=== PATIENT | female | born 1960 | race Hispanic/Latino ===

== ENCOUNTER 2021-12-14 21:27 | Emergency (ER) | payer OTHER ==
[~2021-12-14] VITALS: Ht 170.2 cm; Wt 69.9 kg
[2021-12-14] MEDS ORDERED: TOBR5DRO48 OP (23:43)
[2021-12-14 23:53] VITALS: BP 138/82
[2021-12-15] MEDS ORDERED: TOBRAMYCIN/DEXAMETHASONE OPTH SUSP 2.5 ML BOT OU SCH
== END 2021-12-15 00:01 | disposition home or self-care (01) ==
LOC: EDH 21:27
DX: H10.33 Unspecified acute conjunctivitis, bilateral (principal); Z79.52 Long term (current) use of systemic steroids

== ENCOUNTER 2024-05-04 12:44 | Emergency (ER) | payer BC ==
[~2024-05-04] VITALS: Ht 170.2 cm; Wt 59.0 kg
[~2024-05-04 12:44] MED LIST: TOBR5DRO48 OP
[2024-05-04 13:11] LABS: BASOPHILS # (AUTO) 0.02 K/uL (0.00-0.20); BASOPHILS % (AUTO) 0.2 % (0.0-5.0); HEMATOCRIT 47.9 % (36-48); IMMATURE GRANULOCYTE ABSOLUTE 0.03 K/uL (0-1); LYMPHOCYTES # (AUTO) 0.4 K/uL (1.0-4.8); MEAN CORPUSCULAR HEMOGLOBIN 28.7 pg (27.0-33.0); MEAN CORPUSCULAR HGB CONC 32.4 g/dL (32.0-36.0); MEAN CORPUSCULAR VOLUME 88.7 fL (79-99); MONOCYTES # (AUTO) 0.5 K/uL (0.1-1.0); NEUTROPHILS # (AUTO) 8.6 K/uL (1.8-7.7); NEUTROPHILS % (AUTO) 90.5 % (40.0-77.0); PLATELET COUNT (AUTO) 342 K/uL (130-400); RED CELL DISTRIBUTION WIDTH 12.9 % (11.0-15.5); WHITE BLOOD COUNT (AUTO) 9.5 K/uL (4.8-10.8)
[2024-05-04] MEDS: acetaMINOPHEN 500 MG TABLET PO ONE (13:15)
[2024-05-04] MEDS: 0.9%NACL 1000ML 1,000 ML IV ONE (13:15)
--- NOTE | 2024-05-04 13:30 | HMCIMG ---
Exam Type: CHEST 1VW Clinical Information: Fever / Sepsis Comparison: None Findings: The lungs are clear of infiltrates. The heart is enlarged. Bony and soft tissue structures of the chest wall are unremarkable. IMPRESSION: Cardiomegaly. Clear lungs.
[2024-05-04 13:43] LABS: CREATININE 0.8 mg/dL (0.5-1.0)
--- NOTE | 2024-05-04 13:44 | ERN ---
General Chief Complaint: Earache Stated Complaint: EARACHE Time Seen by MD: 12:55 History of Present Illness Initial Comments 63-year-old female, denies medical conditions, presents for right ear pain and fever. Patient reports that her ear has been bothering her for couple of days. This morning she felt very weak. She reports she has pain to the right side of her face. No nausea or vomiting sore throat cough congestion or diarrhea or dysuria. Allergies: Coded Allergies: No Known Allergies (Unverified Allergy, Unknown, 12/14/21) Home Meds Active Scripts Tobramycin/Dexamethasone (Tobradex Eye Drops) 5 Ml Drops.susp, 5 ML OP AD, #5 DROP Prov:HANNY GARCIA Jr. 12/14/21 Past Medical History Past Medical History: No Pertinent History Past Surgical History: Other Surgical History Other: RT 5TH TOE AMPUTATION, DENTAL SX Family History Family History: Negative Social History Social History: Negative, Lives with family Female( History) History: Not Applicable ROS Dictation CONSTITUTIONAL: Body aches and weakness HEAD/FACE: No signs of trauma. EENT: Right ear pain RESPIRATORY: No cough, no orthopnea, no SOB, no stridor, no wheezing. CARDIOVASCULAR: No chest pain, no edema, no palpitations, no syncope. GASTROINTESTINAL/ABDOMINAL: No abdominal pain, no constipation, no diarrhea, no nausea, no vomiting. GENITOURINARY: No abnormal discharge, no dysuria, no frequent urination, no hematuria. No complaints of pain in the genitals. MUSCULOSKELETAL: No back pain, no gout, no joint pain, no joint swelling, no muscle pain, no muscle stiffness, no neck pain. INTEGUMENTARY: No change in color, no change in hair/nails, no dryness, no l esion, no lumps, no rash. NEUROLOGICAL/PSYCH: No anxiety, not depressed, no emotional problem, no headache, no numbness, no pre-existing deficit, no history of seizures, no tremors, no weakness. HEMATOLOGIC/LYMPHATIC: Not anemic, no history of blood clots, no apparent bleeding, no bruising, glands not swollen. All Systems Negative, Except as Noted. Physical Exam Physical Exam Dictation VITAL SIGNS: Reviewed. GENERAL APPEARANCE: Alert, oriented x3, no acute distress HEAD AND FACE: Non-traumatic. EYES: PERRL, pink conjunctivas, eyelid no trauma, anterior chamber clear. EARS: Pinnas intact and no signs of trauma or erythema. Ear canals clear and no discharge. Right erythematous TM NOSE: No discharge, no bleeding. OROPHARYNX: Mouth normal, teeth no caries, tongue pink. Pharynx clear, no erythema. Tonsils no exudates, no abscesses noted. Mucous membrane moist. NECK: Supple, non-tender, no thyromegaly, no masses, no JVD, no bruits. BREAST: Deferred. CHEST: No tenderness, no crepitus, no paradoxical movement, no retractions. LUNGS: Clear, well-ventilated, symmetric, no rales, no wheezing, no rhonchi, no stridor, good breath sounds bilaterally. HEART: Regular rate, regular rhythm, no murmur, no gallops. VASCULAR: No peripheral edema. ABDOMEN: Soft, positive bowel sounds, nondistended, no guarding, nontender, no rebound, no masses no hepatomegaly, no splenomegaly, no Esposito's sign, no hernias. RECTAL: Deferred. GENITAL: Deferred. NEUROLOGICAL: Normal speech, gross motor function intact, gross sensory function intact. MUSCULOSKELETAL: Neck nontender, full range of motion, back nontender, full range of motion. EXTREMITIES: Nontender, full range of motion. SKIN: Color pink, dry, no turgor, no rash, no lacerations, no abrasions, no contusions. LYMPHATICS: Deferred. Results Laboratory and Microbiology Lab and Micro Result Laboratory Tests Test 05/04/24 13:00 White Blood Count 9.5 K/uL (4.8-10.8) Red Blood Count 5.40 MIL/uL (4.00-5.50) Hemoglobin 15.5 g/dL (12.0-16.0) Hematocrit 47.9 % (36-48) Mean Corpuscular Volume 88.7 fL (79-99) Mean Corpuscular Hemoglobin 28.7 pg (27.0-33.0) Mean Corpuscular Hemoglobin Concent 32.4 g/dL (32.0-36.0) Red Cell Distribution Width 12.9 % (11.0-15.5) Platelet Count 342 K/uL (130-400) Mean Platelet Volume 8.8 fL (7.5-10.5) Immature Granulocyte % (Auto) 0.3 % (0-1) Neutrophils (%) (Auto) 90.5 % (40.0-77.0) H Lymphocytes (%) (Auto) 4.0 % (21.0-51.0) L Monocytes (%) (Auto) 5.0 % (3.0-13.0) Eosinophils (%) (Auto) 0.0 % (0.0-8.0) Basophils (%) (Auto) 0.2 % (0.0-5.0) Neutrophils # (Auto) 8.6 K/uL (1.8-7.7) H Lymphocytes # (Auto) 0.4 K/uL (1.0-4.8) L Monocytes # (Auto) 0.5 K/uL (0.1-1.0) Eosinophils # (Auto) 0.00 K/uL (0.00-0.70) Basophils # (Auto) 0.02 K/uL (0.00-0.20) Absolute Immature Granulocyte (auto 0.03 K/uL (0-1) Nucleated Red Blood Cells 0.0 % (0.0-0.19) White Cell Morphology Comment See comments Sodium Level 142 mmol/L (136-145) Potassium Level 4.0 mmol/L (3.5-5.1) Chloride Level 105 mmol/L (101-111) Carbon Dioxide Level 30 mmol/L (21-32) Blood Urea Nitrogen 12 mg/dL (7-18) Creatinine 0.8 mg/dL (0.5-1.0) Glomerular Filtration Rate Calc 82 mL/min (>90) Random Glucose 113 mg/dL (70-105) H Lactic Acid Level 2.2 mmol/L (0.8-2.5) Total Calcium 9.1 mg/dL (8.5-10.1) MDM CC: Right earache , Fever Historian: Patient Comorbidities: None Limitations by social determinants: None Differential diagnosis: Otitis media, mastoiditis, SIRS, sepsis, URI, other. Initially patient came in febrile when he 1.5, pulse of 108. Other vital signs stable. These vital signs improved in the ER. Clinically the patient has a right otitis media. There is no mastoid pain or tenderness. There is no neck stiffness. Very low suspicion for meningitis ma stoiditis or malignant otitis media. Her labs are unremarkable. The CBC shows no leukocytosis, 90% neutrophils with no bands. Chemistry panel is unremarkable. Lactic acid is 2.2. Glucose 113. CXR: Borderline cardiomegaly, no pleural effusions or focal infiltrates per my independent interpretation. Patient received 1 g of Tylenol and 1 L of normal saline here in the ER. Patient appears to have a otitis media. I do not see any other life threats. This point in time patient appears safe for discharge with oral antibiotics. We will give a prescription for Augmentin. Recommend PCP follow up. ED Course Orders Procedure Category Date Status Time Cbc With Differential LAB 05/04/24 Complete 12:54 Basic Metabolic Panel LAB 05/04/24 Complete 12:54 Urinalysis Profile LAB 05/04/24 Logged 12:54 Lactic Acid LAB 05/04/24 Complete 12:54 Blood Cult JOANNE 05/04/24 In Process 12:54 Acetaminophen 500mg PHA 05/04/24 Complete Tab (Tylenol 500mg T 13:00 Chest 1vw RAD 05/04/24 Resulted 12:55 0.9%Nacl 1000ml (Ns PHA 05/04/24 Complete 1000ml) 13:30 Current Medications Medications (Trade) Dose Ordered Sig/Manny Route PRN Reason Start Time Stop Time Status Last Admin Dose Admin Acetaminophen (TYLenol 500MG TAB) 1,000 mg ONCE ONCE PO 05/04/24 13:00 05/04/24 13:01 DC 05/04/24 13:15 Sodium Chloride 1,000 ml @ 0 mls/hr ONCE ONCE IV 05/04/24 13:30 05/04/24 13:31 DC 05/04/24 13:15 Vital Signs Date Time Temp Pulse Resp B/P (MAP) Pulse Ox O2 Delivery O2 Flow Rate FiO2 05/04/24 14:05 100.0 94 17 135/78 96 Room Air* 0 21 05/04/24 13:15 101.5 05/04/24 12:47 101.5 108 18 160/92 99 Room Air 0 DX & DISP Disposition: Discharge Departure Impression: Primary Impression: Right otitis media Condition: Stable Scripts Ibuprofen (Ibuprofen 800 mg Tab) 800 Mg Tab 800 MG PO Q6H PRN for PAIN, #30 TAB Prov: SAMIR CANELA DO 05/04/24 Amoxicillin/Potassium Clav (Amox Tr-K Clv 875-125 mg Tab) 875 Mg-125 Mg Tablet 1 TAB PO BID for 10 Days, #20 TAB 0 Refills Prov: SAMIR CANELA DO 05/04/24 Additional Instructions: You appear to have a right ear infection. Your lab work (CBC, metabolic panel, lactic acid) is stable. You received IV fluids and Tylenol here in the ER. I have prescribed Augmentin, which is an antibiotic. Please take the full course of antibiotics as prescribed. I recommend he take 800 mg of ibuprofen three or 4 times a day for pain and fever. You can also take 1000 mg of Tylenol. Drink plenty of liquids. I recommend that you follow up with your doctor next week for re-evaluation. Please return to the emergency department have any concerns. Referrals: SELF,REFERRAL (PCP) SAMIR CANELA DO May 04, 2024 13:44
--- NOTE | 2024-05-04 14:07 | NUR ---
notified doctor Mehran Bowman of lactic acid of 2.2, no new orders.
[2024-05-04 14:22] VITALS: TEMP 100
[2024-05-04] MEDS ORDERED: AMOX1TAB16 PO (15:10)
[2024-05-04] MEDS ORDERED: IBUP-2077 PO (15:10)
[2024-05-04 15:26] VITALS: BP 144/75; PULSE 100; RESP 17; TEMP 99.5; O2SAT 98
[2024-05-04 16:09] LABS: ADD UA MICROSCOPIC YES; APPEARANCE,URINE CLEAR (CLEAR); BILIRUBIN,URINE NEGATIVE (NEGATIVE); COLOR,URINE COLORLESS (YELLOW); GLUCOSE, URINE (UA) NEGATIVE (NEGATIVE); KETONES,URINE NEGATIVE (NEGATIVE); LEUKOCYTE ESTERASE ,URINE NEGATIVE Leu/uL (NEGATIVE); NITRATE,URINE NEGATIVE (NEGATIVE); PH,URINE 5.5 (5.0-8.0); PROTEIN,URINE NEGATIVE (NEGATIVE); UROBILINOGEN,URINE 0.2 mg/dL (0.2-1.0)
[2024-05-04 16:11] LABS: RBC,URINE 0-1 /HPF (0-1); SQUAMOUS EPITHELIAL CELL,UR RARE /HPF (0-2); WBC,URINE 0-1 /HPF (0-1)
== END 2024-05-04 16:05 | disposition home or self-care (01) ==
LOC: EDH 12:44
DX: H66.91 Otitis media, unspecified, right ear (principal); Z79.899 Other long term (current) drug therapy; Z98.890 Other specified postprocedural states
CPT/HCPCS: 99283; 96360; 71045; 80048; 85025; 87040 ×2; 83605; 81001; 36415; J7030

== ENCOUNTER 2024-07-21 05:50 | Emergency (ER) | payer MEDICARE, BC ==
[~2024-07-21] VITALS: Ht 170.2 cm; Wt 74.8 kg
[~2024-07-21 05:50] MED LIST changes: +AMOX1TAB16 PO; +IBUP-2077 PO
--- NOTE | 2024-07-21 06:29 | ERN ---
General Chief Complaint: Back Pain or Injury Stated Complaint: PAIN TO R SHOULDER,RUE,BACK S/P FALL ONTO MATTRESS Time Seen by MD: 06:19 History of Present Illness Initial Comments Patient was a healthy 63-year-old female who fell onto a mattress onto her right side approximately an hour ago and immediately experienced pain running up and down her right flank right shoulder right chest. She states she has no liver disease no heart disease no medications and no known drug allergies. The pain is making it difficult for her to take a full breath Timing/Duration: 1-3 hours Severity: severe Associated Symptoms: chest pain Allergies: Coded Allergies: No Known Allergies (Unverified Allergy, Unknown, 12/14/21) Home Meds Active Scripts Ibuprofen (Ibuprofen 800 mg Tab) 800 Mg Tab, 800 MG PO Q6H PRN for PAIN, #30 TAB Prov:SAMIR CANELA DO 05/04/24 Amoxicillin/Potassium Clav (Amox Tr-K Clv 875-125 mg Tab) 875 Mg-125 Mg Tablet, 1 TAB PO BID for 10 Days, #20 TAB 0 Refills Prov:SAMIR CANELA DO 05/04/24 Tobramycin/Dexamethasone (Tobradex Eye Drops) 5 Ml Drops.susp, 5 ML OP AD, #5 DROP Prov:HANNY GARCIA Jr. BARIATRIC PHYSICIAN 12/14/21 Past Medical History Past Medical History: No Pertinent History Past Surgical History: Other Surgical History Other: RT 5TH TOE AMPUTATION, DENTAL SX Family History Family History: Negative Social History Social History: Negative, Lives with family Female( History) History: Not Applicable Musculoskeletal: (+) Neck pain, (+) back pain, (+) Flank Pain Review of Systems: was completed, & the rest were negative. Physical Exam General Appearance: (+) severe distress Orientation: (+) alert, (+) oriented x 3 Eye: bilateral eye normal inspection, bilateral eye PERRL, bilateral eye EOMI Ear, Nose, Throat: (+) hearing grossly normal, (+) normal ENT inspection, (+) moist mucous membraine, (+) normal pharynx Neck: (+) normal inspection, (+) tender, (+) limited range of motion Respiratory Comment Patient has severe right chest wall tenderness. Vascular: (+) no edema, (+) normal peripheral pulse, (+) no JVD Gastrointestinal: (+) soft, (+) non-tender, (+) bowel sound present Extremities: (+) normal range of motion Neurologic/Psychiatric: (+) normal speech Results Laboratory and Microbiology Labs Reviewed?: Yes EKG/XRAY/US/CT/MRI CT Scan Comment [facility] [address] [place] [address] IMAGING REPORT Signed PATIENT: LIZ BARTHOLOMEW MR#: [id number] : 1960 SEX: F AGE: 63 LOCATION: ED ORDER 1 STATUS: [facility] REPORT#: [id number] SERVICE 8 REASON: rib fractures, t-spine fractures ORDERING PHYSICIAN: ANKITA MILLER MD PROCEDURE: L SPIN WO - CT LUMBAR SPINE W/O CONTRAST CT LUMBAR SPINE WITHOUT CONTRAST INDICATION: Back pain after fall TECHNIQUE: Noncontrast helical CT of the lumbar spine obtained at 2 mm slice thickness with reconstructions in the coronal and sagittal planes. CT was performed with one or more of the following dose reduction techniques: Automated exposure control, adjustment of the mA and/or kV according to patient size, or use of iterative reconstruction technique. COMPARISON: None FINDINGS: Normal lordosis is maintained. Vertebral bodies are normal in height, without evidence for fracture or compression deformity. No evidence for subluxation. Shallow lumbar levoscoliosis. Multilevel mild to moderate anterior endplate osteophytic spurring. Shallow broad-based posterior disc protrusion at the L2-L3 level, shallow posterior disc-osteophyte complex formation at the L3-L4 level, shallow posterior disc displacement at the L4-L5 level, and shallow broad-based posterior disc protrusion at the L5-S1 level contributing to varying degrees of mild to moderate central canal stenosis. Mild vacuum disc phenomenon at the L3-L4 and L5-S1 levels. The sacroiliac joints appear normal. The paravertebral soft tissues appear normal. Mild calcific plaque is noted along the abdominal aortic and iliac vessel brody without aneurysmal dilation. IMPRESSION: Degenerative changes as described, without fracture or subluxation. DICTATED BY: WEI YIN MD DATE: 07/21/24816 ELECTRONICALLY SIGNED BY: WEI YIN MD DATE: 07/21/24821 [place] [id number] [place] [address] IMAGING REPORT Signed PATIENT: LIZ BARTHOLOMEW MR#: [id number] : 1960 SEX: F AGE: 63 LOCATION: EDH ORDER 1 STATUS: REG ER REPORT#: [id number] SERVICE 8 REASON: rib fractures, t-spine fractures ORDERING PHYSICIAN: ANKITA MILLER MD PROCEDURE: CHEST WO - CT CHEST W/O CONTRAST CT CHEST WITHOUT CONTRAST INDICATION: Fall TECHNIQUE: Routine axial images using 5 mm slice thickness were acquired from the lung apices to the bases without the administration of IV contrast.Coronal and sagittal reformatted images acquired for interpretation. CT was performed with one or more of the following dose reduction techniques: Automated exposure control, adjustment of the mA and/or kV according to patient size, or use of iterative reconstruction technique. COMPARISON: None FINDINGS: The heart size is normal. Coronary arterial wall calcific plaque noted. No pericardial effusion noted. Mild calcific plaque is present along the aortic arch and thoracic aortic brody without aneurysmal dilation. The trachea and airways are patent. No evidence for pulmonary nodule, consolidation, cavitary lesion, or other abnormal pulmonary parenchymal opacity. Minimal dependent atelectasis along the posterior right greater than left lower lobe, several which may represent scarring. No axillary, hilar, or mediastinal lymphadenopathy. No pleural effusion or pneumothorax identified. A couple of simple tiny cysts within the right hepatic lobe. Displaced and slightly overlapped lateral eighth rib fracture, and nondisplaced posterior right ninth rib fracture. IMPRESSION: 1. Displaced and slightly overlapped lateral eighth rib fracture, and nondisplaced posterior right ninth rib fracture without pleural effusion, pneumothorax, right hemidiaphragm injury, or liver laceration. 2. Arteriosclerotic disease as described. 3. Additional minor findings and pertinent negatives as reported. DICTATED BY: WEI YIN MD DATE: 07/21/24813 ELECTRONICALLY SIGNED BY: WEI YIN MD DATE: 07/21/24818 [facility] MDM: DIFFERENTIAL DIAGNOSIS: RIB FRACTURE, FALL, PULMONARY CONTUSION, 63-year-old female in extreme amount of pain from a fall onto her right side. I will order Toradol for pain and Flexeril for muscle relaxation as well as a CT scan of her chest and T-spine. CT DISCLOSE 8TH AND 9TH RIB FRACTURE. PATIENT WILL BE DISCHARGED WITH A STABLE CONDITION INTENSE HE IS FROM HER WHAT HE HAS BEEN TO THE PATIENT AND SHE WAS TAUGHT HOW TO USE IT. ED Course Orders Procedure Category Date Status Time Ketorolac PHA 07/21/24 Complete Tromethamine 30mg/Ml 06:30 Cyclobenzaprine Hcl PHA 07/21/24 Complete (Cyclobenzaprine Hcl 06:30 Ct Chest W/O Contrast CT 07/21/24 Resulted 06:29 Ct Lumbar Spine W/O CT 07/21/24 Resulted Contrast 06:29 Current Medications Medications (Trade) Dose Ordered Sig/Manny Route PRN Reason Start Time Stop Time Status Last Admin Dose Admin Cyclobenzaprine HCl (Cyclobenzaprine HCl) 10 mg ONCE ONCE PO 07/21/24 06:30 07/21/24 06:34 DC 07/21/24 07:03 Ketorolac Tromethamine (toRADol) 30 mg ONCE ONCE IVP 07/21/24 06:30 07/21/24 06:34 DC 07/21/24 07:03 Vital Signs Date Time Temp Pulse Resp B/P (MAP) Pulse Ox O2 Delivery O2 Flow Rate FiO2 07/21/24 07:30 97.7 78 18 157/85 99 Room Air* 0 21 07/21/24 05:54 97.9 88 16 152/86 100 Room Air 0 07/21/24 05:52 97.9 88 16 152/86 100 Room Air* 0 21 DX & DISP Disposition: Discharge Departure Impression: Primary Impression: Ribs, multiple fractures Condition: Stable Scripts Amoxicillin (Amoxicillin) 500 Mg Capsule 1 CAP PO TID for 10 Days, #30 CAP 0 Refills Prov: LIZ GRIFFITHS MD 07/21/24 Naproxen (Naproxen) 375 Mg Tablet.dr 375 MG PO BID for 7 Days, #14 TAB Prov: LIZ GRIFFITHS MD 07/21/24 Gabapentin (Gabapentin) 100 Mg Capsule 1 CAP PO BID for 7 Days, #14 CAP 0 Refills Prov: LIZ GRIFFITHS MD 07/21/24 Additional Instructions: FOLLOW-UP WITH PRIMARY CARE PROVIDER IN 1 TO 2 DAYS. TAKE MEDICATIONS DIRECTED HERE IN THE EMERGENCY ROOM. OKAY TO CONTINUE HOME MEDICATIONS UNLESS OTHERWISE DISCUSSED DURING YOUR VISIT IN THE EMERGENCY ROOM TODAY. RETURN TO YOUR NEAREST EMERGENCY ROOM IF SYMPTOMS WORSEN OR IF THERE IS NO IMPROVEMENT. CALL 911 IF YOU NEED IMMEDIATE ASSISTANCE. TAKE TYLENOL [id number] NEEDED AND IF NO CONTRAINDICATIONS ARE PRESENT. INCREASE ORAL HYDRATION. A WOUND CULTURE OR URINE CULTURE WAS ORDERED HERE IN THE EMERGENCY ROOM DEPARTMENT PLEASE FOLLOW-UP WITH PRIMARY CARE PROVIDER AND ADVISE THEM TO GET REPEAT PORTS FROM OUR FACILITY. IF YOU HAD ANY MADDIE WRAP/SPLINTS THAT WERE APPLIED HERE, PLEASE DO NOT REMOVE THEM UNTIL YOU SEE YOUR PRIMARY CARE OR SPECIALTY. REFERRALS: Referrals: SELF,REFERRAL (PCP) NAFISA BAH MD Time of Disposition: 08:39 ANKITA MILLER MD Jul 21, 2024 06:29 LIZ GRIFFITHS MD Jul 21, 2024 08:40
--- NOTE | 2024-07-21 07:01 | NUR ---
ATTEMPT TO SCAN PT WAS MADE, PT UNABLE TO LAY DOWN FLAT DUE TO PAIN AND DIFFICULTY BREATHING. ER DR WAS INFORMED. DR ORDERED PAIN MEDS FOR PT. RN ADVISED TO INFORM INCOMING RN TO INFORM [employer]IPWRIGHT APPRENTICE WHEN PT IS READY FOR CT EXAMS.
[2024-07-21] MEDS: CYCLOBENZAPRINE HCL 10 MG TABLET PO ONE (07:03)
[2024-07-21] MEDS: ketOROlac 30MG VIAL (30MG/ML) IVP ONE (07:03)
[2024-07-21 07:30] VITALS: BP 157/85; PULSE 78; RESP 18; TEMP 97.7; O2SAT 99
--- NOTE | 2024-07-21 08:19 | HMCIMG ---
CT CHEST WITHOUT CONTRAST INDICATION: Fall TECHNIQUE: Routine axial images using 5 mm slice thickness were acquired from the lung apices to the bases without the administration of IV contrast.Coronal and sagittal reformatted images acquired for interpretation. CT was performed with one or more of the following dose reduction techniques: Automated exposure control, adjustment of the mA and/or kV according to patient size, or use of iterative reconstruction technique. COMPARISON: None FINDINGS: The heart size is normal. Coronary arterial wall calcific plaque noted. No pericardial effusion noted. Mild calcific plaque is present along the aortic arch and thoracic aortic brody without aneurysmal dilation. The trachea and airways are patent. No evidence for pulmonary nodule, consolidation, cavitary lesion, or other abnormal pulmonary parenchymal opacity. Minimal dependent atelectasis along the posterior right greater than left lower lobe, several which may represent scarring. No axillary, hilar, or mediastinal lymphadenopathy. No pleural effusion or pneumothorax identified. A couple of simple tiny cysts within the right hepatic lobe. Displaced and slightly overlapped lateral eighth rib fracture, and nondisplaced posterior right ninth rib fracture. IMPRESSION: 1. Displaced and slightly overlapped lateral eighth rib fracture, and nondisplaced posterior right ninth rib fracture without pleural effusion, pneumothorax, right hemidiaphragm injury, or liver laceration. 2. Arteriosclerotic disease as described. 3. Additional minor findings and pertinent negatives as reported.
--- NOTE | 2024-07-21 08:22 | HMCIMG ---
CT LUMBAR SPINE WITHOUT CONTRAST INDICATION: Back pain after fall TECHNIQUE: Noncontrast helical CT of the lumbar spine obtained at 2 mm slice thickness with reconstructions in the coronal and sagittal planes. CT was performed with one or more of the following dose reduction techniques: Automated exposure control, adjustment of the mA and/or kV according to patient size, or use of iterative reconstruction technique. COMPARISON: None FINDINGS: Normal lordosis is maintained. Vertebral bodies are normal in height, without evidence for fracture or compression deformity. No evidence for subluxation. Shallow lumbar levoscoliosis. Multilevel mild to moderate anterior endplate osteophytic spurring. Shallow broad-based posterior disc protrusion at the L2-L3 level, shallow posterior disc-osteophyte complex formation at the L3-L4 level, shallow posterior disc displacement at the L4-L5 level, and shallow broad-based posterior disc protrusion at the L5-S1 level contributing to varying degrees of mild to moderate central canal stenosis. Mild vacuum disc phenomenon at the L3-L4 and L5-S1 levels. The sacroiliac joints appear normal. The paravertebral soft tissues appear normal. Mild calcific plaque is noted along the abdominal aortic and iliac vessel brody without aneurysmal dilation. IMPRESSION: Degenerative changes as described, without fracture or subluxation.
[2024-07-21] MEDS ORDERED: NAPR-1505 PO (08:40)
[2024-07-21] MEDS ORDERED: AMOX500C2 PO (08:40)
[2024-07-21] MEDS ORDERED: GABA-529 PO (08:40)
== END 2024-07-21 08:56 | disposition home or self-care (01) ==
LOC: EDH 05:50
DX: S22.41XA Multiple fractures of ribs, right side, initial encounter for closed fracture (principal); Z79.899 Other long term (current) drug therapy; X58.XXXA Exposure to other specified factors, initial encounter; Y93.89 Activity, other specified; Y92.89 Other specified places as the place of occurrence of the external cause; Y99.8 Other external cause status
CPT/HCPCS: 99285; 71250; 96374; 72131; J1885